=== PATIENT | female | born 1990 | race Caucasian/White ===

== ENCOUNTER 2018-01-07 14:03 | Emergency (ER) | payer OTHER ==
[~2018-01-07] VITALS: Ht 162.6 cm; Wt 62.6 kg
[~2018-01-07 14:03] MED LIST: LAMICTAL25 MG PO; PROZAC20 MG PO
== END 2018-01-07 19:28 | disposition home or self-care (01) ==
LOC: ER 14:03
DX: R53.81 Other malaise (principal)